=== PATIENT | male | born 1970 | race Hispanic/Latino ===

== ENCOUNTER 2016-11-11 15:39 | Emergency (ER) | payer OTHER ==
[2016-11-11 15:54] VITALS: BP 127/90
[2016-11-11] MEDS ORDERED: BOOSTRIX IM ONE (15:58)
[2016-11-11] MEDS ORDERED: NACL 0.9% 1000 ML 1,000 ML IV ONE (15:58)
[2016-11-11 16:54] LABS: Basophils % (Auto) 1.2 % (0.0-1.8); Eosinophils % (Auto) 2.5 % (0.0-4.3); Hematocrit 39.9 % (35.5-45.6); Hemoglobin 13.1 gm/dl (11.8-15.2); Mean Corpuscular HGB Conc 33 % (32-34); Mean Corpuscular Hemoglobin 28 pg (28-32); Mean Corpuscular Volume 85 fl (84-94); Platelet Count 284 K/mm3 (140-440); Red Cell Distribution Width 13.9 % (13.2-15.2); White Blood Count 7.2 K/mm3 (4.5-11.0)
[2016-11-11 17:03] LABS: INR 1.04 (0.87-1.13); Partial Thromboplastin Time 32.4 Sec. (24.2-36.6)
[2016-11-11 17:12] LABS: Anion Gap 16 mmol/L; BUN/Creatinine Ratio 26.25; Blood Urea Nitrogen 21 mg/dL (9-20); Carbon Dioxide 26 mmol/L (22-30); Chloride 100.9 mmol/L (98-107); Glucose 97 mg/dL (75-100); Potassium 3.9 mmol/L (3.6-5.0); Sodium 139 mmol/L (137-145)
[2016-11-11 17:23] LABS: Alanine Aminotransferase 54 units/L (7-56); Albumin/Globulin Ratio 1.3 %; Alkaline Phosphatase 108 units/L (35-129); Bilirubin,Total 0.5 mg/dL (0.1-1.2); Magnesium 1.9 mg/dL (1.7-2.3); Total Protein 7.2 g/dL (6.3-8.2)
[2016-11-11 17:24] LABS: Bilirubin,Direct < 0.2 mg/dL (0-0.2); Bilirubin,Indirect 0.3 mg/dL
--- NOTE | 2016-11-11 17:52 | Emergency Department Report ---
ED General Adult HPI - General Chief complaint: Chest Pain Stated complaint: CHEST PAIN Time Seen by Provider: 11/11/16 15:56 Source: patient Mode of arrival: Ambulatory Limitations: No Limitations - History of Present Illness Initial comments: States that he was working with a grinding stone prior to arrival that broke. He states that a piece struck him in the chest. He feels like he has a foreign body. He complains of chest discomfort. He mentioned that he had some discomfort in his left arm. This all resolved very quickly. When I reassessed him his chest pain was gone. He stated that he had a lump in his throat. He no longer had any difficulty breathing or chest pain. He sustained a 4-5 cm laceration of the left anterior chest at the level of the [place]. Was process on an emergent basis just in case he did have a penetrating injury. He received chest x-ray which was negative for foreign body. He also had a bedside echocardiogram. -: Sudden Location: chest Quality: aching Consistency: now resolved Improves with: none Worsens with: none Associated Symptoms: shortness of breath, other ("lump in throat") - Related Data Previous Rx's Medication Instructions Recorded Last Taken Type Acetaminophen/Codeine [Tylenol #3] 1 tab PO TID #15 tablet 02/28/15 Unknown Rx Sulfamethoxazole/Trimethoprim 1 each PO BID #20 tablet 02/28/15 Unknown Rx [Bactrim Ds] Allergies Allergy/AdvReac Type Severity Reaction Status Date / Time No Known Allergies Allergy Verified 02/28/15 08:57 ED Review of Systems ROS: Stated complaint: CHEST PAIN Other details as noted in HPI Constitutional: denies: chills, fever Eyes: denies: eye pain, eye discharge, vision change ENT: other (to swallow and no problems with secretions). denies: ear pain, throat pain Respiratory: shortness of breath. denies: cough, wheezing Cardiovascular: chest pain. denies: palpitations Endocrine: no symptoms reported Gastrointestinal: denies: abdominal pain, nausea, diarrhea Genitourinary: denies: urgency, dysuria Musculoskeletal: denies: back pain, joint swelling, arthralgia Skin: denies: rash, lesions Neurological: denies: headache, weakness, paresthesias Psychiatric: denies: anxiety, depression Hematological/Lymphatic: denies: easy bleeding, easy bruising Other: Significant external blood loss or active bleeding on arrival. ED Past Medical Hx - Past Medical History Previous Medical History?: No - Surgical History Past Surgical History?: Yes Additional Surgical History: RIGHT LEG SURGERY - Social History Smoking Status: Current Every Day Smoker Substance Use Type: None - Medications Home Medications: Home Medications Medication Instructions Recorded Confirmed Last Taken Type Acetaminophen/Codeine [Tylenol #3] 1 tab PO TID #15 tablet 02/28/15 Unknown Rx Sulfamethoxazole/Trimethoprim 1 each PO BID #20 tablet 02/28/15 Unknown Rx [Bactrim Ds] ED Physical Exam - General Limitations: No Limitations General appearance: alert, in no apparent distress - Head Head exam: Present: atraumatic, normocephalic - Eye Eye exam: Present: normal appearance, PERRL, EOMI. Absent: scleral icterus - ENT ENT exam: Present: normal exam, mucous membranes moist - Neck Neck exam: Present: normal inspection - Respiratory Respiratory exam: Present: normal lung sounds bilaterally. Absent: respiratory distress - Cardiovascular Cardiovascular Exam: Present: regular rate, normal rhythm. Absent: systolic murmur, diastolic murmur, rubs, gallop - GI/Abdominal GI/Abdominal exam: Present: soft, normal bowel sounds. Absent: distended, tenderness, guarding, rebound, rigid - Rectal Rectal exam: Present: deferred - Extremities Exam Extremities exam: Present: normal inspection - Back Exam Back exam: Present: normal inspection - Neurological Exam Neurological exam: Present: alert, oriented X3, CN II-XII intact. Absent: motor sensory deficit - Psychiatric Psychiatric exam: Present: normal affect, normal mood - Skin Skin exam: Present: warm, dry, intact, normal color. Absent: rash ED Course Vital Signs 11/11/16 15:50 Temperature 97.9 F Pulse Rate 90 Respiratory 22 Rate Blood Pressure 127/90 O2 Sat by Pulse 100 Oximetry - Reevaluation(s) Reevaluation #1: Patient developed no significant sore shortness of breath. He had no significant bleeding. He denied further chest pain. No difficulty with swallowing. Wound was anesthetized and I explored it. It has a clear cul-de- sac and was superficial and 2 subcutaneous fat only. It was repaired. 11/11/16 18:05 ED Medical Decision Making - Lab Data Result diagrams: 11/11/16 16:32 02/15/17 16:32 Laboratory Results - last 24 hr 11/11/16 11/11/16 11/11/16 16:32 16:32 16:32 WBC 7.2 RBC 4.70 Hgb 13.1 Hct 39.9 MCV 85 MCH 28 MCHC 33 RDW 13.9 Plt Count 284 Lymph % (Auto) 20.3 Converse % (Auto) 5.4 Eos % (Auto) 2.5 Baso % (Auto) 1.2 Lymph # 1.5 [place]verse # 0.4 Eos # 0.2 Baso # 0.1 Seg Neutrophils % 70.6 H Seg Neutrophils # 5.1 PT 13.5 INR 1.04 APTT 32.4 Sodium 139 Potassium 3.9 Chloride 100.9 Carbon Dioxide 26 Anion Gap 16 BUN 21 H Creatinine 0.8 Estimated GFR > 60 BUN/Creatinine Ratio 26.25 Glucose 97 Lactic Acid Calcium 9.0 Magnesium Total Bilirubin Direct Bilirubin Indirect Bilirubin AST ALT Alkaline Phosphatase Troponin T < 0.010 NT-Pro-B Natriuret Pep Total Protein Albumin Albumin/Globulin Ratio Blood Type Antibody Screen 11/11/16 11/11/16 11/11/16 16:32 16:32 16:32 WBC RBC Hgb Hct MCV MCH MCHC RDW Plt Count Lymph % (Auto) [place] % (Auto) Eos % (Auto) Baso % (Auto) Lymph # Converse # Eos # Baso # Seg Neutrophils % Seg Neutrophils # PT INR APTT Sodium Potassium Chloride Carbon Dioxide Anion Gap BUN Creatinine Estimated GFR BUN/Creatinine Ratio Glucose Lactic Acid 0.8 Calcium Magnesium 1.9 Total Bilirubin 0.5 Direct Bilirubin < 0.2 Indirect Bilirubin 0.3 AST 39 ALT 54 Alkaline Phosphatase 108 Troponin T NT-Pro-B Natriuret Pep 38.16 Total Protein 7.2 Albumin 4.0 Albumin/Globulin Ratio 1.3 Blood Type O POSITIVE Antibody Screen Negative - EKG Data -: EKG Interpreted by Me EKG shows normal: sinus rhythm, axis, intervals, QRS complexes, ST-T waves Rate: normal - EKG Data When compared to previous EKG there are: no significant change Interpretation: no acute changes, normal EKG - Radiology Data interpreted by me: Chest x-ray no acute process. No foreign body. No pneumothorax. No mediastinal abnormality. An echocardiogram was reviewed. It showed no pericardial fluid. The technology support analyst told me she saw no abnormality. See formal report when available. Critical care attestation.: If time is entered above; I have spent that time in minutes in the direct care of this critically ill patient, excluding procedure time. ED Disposition Clinical Impression: Laceration of chest Qualifiers: Encounter type: initial encounter Qualified Code(s): S21.91XA - Laceration without foreign body of unspecified part of thorax, initial encounter Chest pain Qualifiers: Chest pain type: unspecified Qualified Code(s): R07.9 - Chest pain, unspecified Disposition: DISCHARGED TO HOME OR SELFCARE Is pt being admited?: No Does the pt Need Aspirin: No Condition: Stable Instructions: Chest Pain (ED), Laceration (ED), Suture Care (ED) Additional Instructions: Removal in 7 days. Return any signs of infection. Return any significant chest discomfort or difficulty in breathing. Wound care is essential or the wound will get infected. Suture removal in 7 days. Referrals: PRIMARY CARE, [Primary Care Provider] - 3-5 Days Time of Disposition: 18:08
[2016-11-11] MEDS ORDERED: TRIPLE ANTIBIOTIC TP ONE (17:57)
[2016-11-11] MEDS ORDERED: XYLOCAINE 1%/ EPI 1:100,000 INFILTRATI NR (18:00)
--- NOTE | 2016-11-11 18:07 | Emergency Department Report ---
Blank Doc - Documentation Documentation: Procedure note: Anterior chest wall laceration Vertical laceration approximately 4 cm in length to the subcutaneous tissue, fairly superficial, mechanism was a grinding wheel which came off wheel/ patient across chest Site cleaned with iodine and saline mixture all around the wound and wound edges , 100 mL of saline used to irrigate central wound. 6 mL of lidocaine 1% with epinephrine infiltrated into soft tissue surrounding the laceration. Wound briefly probed with forceps no significant depth of wound probe did not dip into tissue across the entire length of wound. Good anesthesia achieved minimal bleeding 7 3-0 Prolene sutures placed simple interrupted sutures laceration, good closure achieved minimal pain minimal bleeding during procedure. Wound site dressed with triple antibiotic ointment and 4 x [address] Lei notified of wound closure
--- NOTE | 2016-11-12 09:00 | XRay Report ---
CHEST 2 VIEWS INDICATION: Chest pain after blunt trauma. Laceration to left upper chest from head grinder blade today. COMPARISON: None similar. FINDINGS: Frontal and lateral chest radiographs demonstrate normal cardiomediastinal silhouette and clear lungs, given the inspiration. No pleural effusions, CHF or pneumothorax. Indicated left supraclavicular area reveals no radiopaque density. Mild thoracic spine degenerative changes. CONCLUSION: No acute disease in the chest. Thank you for the opportunity to participate in this patient's care.
== END 2016-11-11 18:39 | disposition home or self-care (01) ==
LOC: ED 15:39
DX: S21.91XA Laceration without foreign body of unspecified part of thorax, initial encounter (principal); R07.9 Chest pain, unspecified; F17.200 Nicotine dependence, unspecified, uncomplicated; X58.XXXA Exposure to other specified factors, initial encounter; Y93.89 Activity, other specified; Y99.9 Unspecified external cause status; Y92.89 Other specified places as the place of occurrence of the external cause
CPT/HCPCS: 36415; 71020; 80048; 80074; 82140; 83735; 83880; 84484; 85025; 85610; 85730; 86850; 86900; 86901; 90471; 90715; 93005; 93010; 93306; 96360; 96361; 99285; J7030; A6250

== ENCOUNTER 2020-02-14 19:21 | Emergency (ER) | payer SELFPAY ==
[2020-02-14] MEDS ORDERED: LIDOCAINE (2%) 20 MG/1 ML VIAL 20 ML MDV INFILTRATI STA (21:00)
[2020-02-14] MEDS ORDERED: oxyCODONE /ACETAMINOPHEN 5-325MG TAB PO STA (21:06)
[2020-02-14] MEDS ORDERED: ceFAZolin 1 GM VIAL IM STA (21:06)
--- NOTE | 2020-02-14 21:23 | XRay Report ---
LEFT HAND 3 VIEWS 2013 INDICATION: MAIN: laceration; Laceration to left hand from a saw. Pt has it wrapped with daniela bandage. COMPARISON: None available. FINDINGS: A fracture is seen in the distal portion of the third metacarpal from the distal shaft into the head area on the medial aspect with orientation of the fracture line in the axis of the metacarp al. There are multiple small calcific type densities seen in the soft tissues immediately dorsal to t he third metacarpal phalangeal joint and proximal portion of the proximal phalanx of the third digit. Though the density might suggest bony fragments, I do not clearly see the donor sites. These may rep resent multiple foreign bodies in the soft tissues at this laceration. A metal ring is on the ring fi nger. No other fractures are seen. Tiny densities in the soft tissues of the distal phalanx of the in dex finger likely are old foreign bodies in the soft tissues. No dislocation is seen. Signer Name: Brien Arguello MD Signed: 02/14/2020 9:18 PM Workstation Name: [id number]
--- NOTE | 2020-02-14 21:23 | Emergency Department Report ---
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 Complaint: Injury to:: left Other Extremity Injury: Fingers: Left Other Injuries: none Handedness: left Place: work Worsens With: movement of extremity Context: direct blow, laceration - Related Data Previous Rx's Medication Instructions Recorded Last Taken Type Acetaminophen/Codeine [Tylenol #3] 1 tab PO TID #15 tablet 02/28/15 Unknown Rx Sulfamethoxazole/Trimethoprim 1 each PO BID #20 tablet 02/28/15 Unknown Rx [Bactrim Ds] HYDROcodone/APAP 5-325 [[place]gden 1 each PO Q6HR PRN #5 tablet 11/11/16 Unknown Rx 5/325] Allergies Allergy/AdvReac Type Severity Reaction Status Date / Time No Known Allergies Allergy Verified 02/14/20 19:44 ED Review of Systems Comment: All other systems reviewed and negative ED Past Medical Hx - Surgical History Additional Surgical History: RIGHT LEG SURGERY - Social History Smoking Status: Never Smoker Substance Use Type: None - Medications Home Medications: Home Medications Medication Instructions Recorded Confirmed Last Taken Type Acetaminophen/Codeine [Tylenol #3] 1 tab PO TID #15 tablet 02/28/15 Unknown Rx Sulfamethoxazole/Trimethoprim 1 each PO BID #20 tablet 02/28/15 Unknown Rx [Bactrim Ds] HYDROcodone/APAP 5-325 [[place]gden 1 each PO Q6HR PRN #5 tablet 11/11/16 Unknown Rx 5/325] ED Physical Exam - General Limitations: No Limitations General appearance: alert, in no apparent distress - Head Head exam: Present: atraumatic, normocephalic - Eye Eye exam: Present: normal appearance - ENT ENT exam: Present: mucous membranes moist - Neck Neck exam: Present: normal inspection - Respiratory Respiratory exam: Present: normal lung sounds bilaterally. Absent: respiratory distress - Extremities Exam Extremities exam: Present: tenderness, normal capillary refill - Expanded Upper Extremity Exam Left Hand Wrist exam: Present: tenderness, laceration. Absent: ecchymosis, deformity, crepidus, amputation, nail avulsion Hand L/R Back: 1 - Laceration to this region with visible black metal to gravel-like debris. Mild bleeding noted full range of motion present. Hand exam. Full range of motion strength is 4 5 due to pain capillary refills are brisk pulses 2+ to the radial and ulnar side. Heavy black motor or light debris to the palm hand and fingertips pads - Back Exam Back exam: Present: normal inspection - Neurological Exam Neurological exam: Present: CN II-XII intact - Psychiatric Psychiatric exam: Present: normal affect ED Medical Decision Making - Medical Decision Making The patient is oriented to person, place, and time, has the capacity to make decisions regarding the medical care offered. The patient speaks coherently and exhibits no evidence of having an altered level of consciousness or alcohol or drug intoxication to a point that would impair judgment. They respond knowingly to questions about recommended treatment and alternate treatments including no further testing or treatment; participate in diagnostic and treatment decisions by means of rational thought processes; and understand the items of minimum basic medical treatment information with respect to that treatment (the nature and seriousness of the illness, the nature of the treatment, the probable degree and duration of any benefits and risks of any medical intervention that is being recommended, and the consequences of lack of treatment, and the nature, risks, and benefits of any reasonable alternatives). I have reviewed the relevant issues with the patient. They are aware of the suspected diagnosis suggested by screening exam, [open fracture of the third metacarpal phalange_], based upon the initiated medical screening exam. The patient acknowledges understanding of the reasons for recommendations regarding medical treatment, medical testing, and further monitoring and observation. The recommended medical care being refused has been discussed with the patient and is [transferred to [facility] for definitive treatment and management of his open fracture_]. The risks of refusing recommended care that were disclosed and acknowledged by the patient are loss of current lifestyle, permanent mental impairment, and . The patient understands the relevant information of the nature of their medical condition, as well as the risks, benefits, and treatment alternatives (including non-treatment), consequences of refusing care, and can competently communicate a rational explanation about their choice of care options. [Discharge instructions were provided to the patient.] The patient understands they are welcome to return to the hospital at any time to receive the recommended care or any other care at any time, regardless of their ability to pay for such care. Patient was also seen and evaluated by attending Dr. Deon holt who expresses wishes to leave against medical information officer see his note for more detail ED Disposition Clinical Impression: Open fracture of left hand Qualifiers: Encounter type: initial encounter Qualified Code(s): S62.92XB - Unspecified fracture of left wrist and hand, initial encounter for open fracture Hand laceration Qualifiers: Encounter type: initial encounter Foreign body presence: with foreign body Laterality: left Qualified Code(s): S61.422A - Laceration with foreign body of left hand, initial encounter Disposition: DC LEFT AGAINST MED ADVICE Is pt being admited?: No Does the pt Need Aspirin: No Condition: Stable Referrals: PRIMARY CARE,MD [Primary Care Provider] - 3-5 Days [facility] [Outside] - [facility] Trauma, [place] [Other] - [facility] <FLETCHER HERNANDEZ III - Last Filed: 02/14/20 21:39> ED Review of Systems ROS: Stated complaint: HAND LACERATION Other details as noted in HPI ED Course - Reevaluation(s) Reevaluation #1: I discussed plan of care with patient that the patient would need to be transferred to a facility with hand surgery since the patient has a large lacer ation over a fracture. Patient states he does not want to be transferred via EMS and states that he refuses to be transferred. Patient states that he is going to leave and go to [place] via private vehicle if he goes at all. I discussed risk with patient. Patient voiced understanding of risk. Patient signed AMA form. Patient up-to-date with tetanus. Patient states his last tetanus 6 weeks ago. Patient is already received Ancef 1 g. Patient's wound has already been washed out. Patient will be dressed with a sterile dressing and allowed to leave the hospital AGAINST MEDICAL ADVICE. 02/14/20 21:21 Critical care attestation.: If time is entered above; I have spent that time in minutes in the direct care of this critically ill patient, excluding procedure time. ED Disposition Is pt being admited?: No Does the pt Need Aspirin: No Time of Disposition: 21:38
== END 2020-02-14 21:37 | disposition left against medical advice (07) ==
LOC: ED 19:21
DX: S61.422A Laceration with foreign body of left hand, initial encounter (principal); S62.92XB Unspecified fracture of left hand, initial encounter for open fracture; Z98.890 Other specified postprocedural states; Z79.899 Other long term (current) drug therapy; X58.XXXA Exposure to other specified factors, initial encounter; Y93.89 Activity, other specified; Y92.89 Other specified places as the place of occurrence of the external cause; Y99.8 Other external cause status
CPT/HCPCS: 73130; 96372; 99283; J0690